=== PATIENT | male | born 1965 | race Caucasian/White ===

== ENCOUNTER 2018-12-18 09:40 | Day surgery (SDC) ==
[2018-12-18 10:10] VITALS: TEMP 97.9
[2018-12-18] MEDS ORDERED: LIDOCAINE 1% 20 ML MDV ID STA (10:10)
[2018-12-18] MEDS ORDERED: LIDOCAINE 1% 20 ML MDV ID ONE (10:34)
[2018-12-18] MEDS ORDERED: DIPRIVAN 20 ML VIAL IVP ONE (10:45)
[2018-12-18 14:03] VITALS: BP 114/72
--- NOTE | 2018-12-19 11:50 | OP ---
PROCEDURE: COLONOSCOPY TO THE CECUM. ENDOSCOPIST: Kim WORKMAN M.D. INDICATION: HISTORY OF POLYPS. REFERRING PHYSICIAN: SHARYN AMAYA INSTRUMENT: [id number]. MEDICATION: PER ANESTHESIA. PROCEDURE: The patient was positioned for colonoscopy. The digital rectal exam was negative. The colonoscope was inserted through the anus and advanced to the cecum. The cecum was identified using the ileocecal valve and the appendiceal orifice as landmarks. The scope was slowly withdrawn through an adequately prepped colon. The patient had a history of polyp that had been left in the colon some year and a half ago. I had no records to document that location. Multiple requests had been made to the referring physician's office for these records and again we have not obtained the records for his colonoscopy in [place]. We reached the cecum and slowly withdrew through all colonic segments. I saw no evidence for inflammatory change, polyp or mass. He does have diverticular disease throughout the left colon. The retroflex exam was normal. We then reinserted the colonoscopy and advanced again to the cecum. Narrow band imaging was used in the right colon and I did not identify a linear polyp as the patient had described. I saw no evidence for polyps on this exam. Attempts were made to contact my office to see if we could obtain the original colonoscopy report however it has not been sent to our office at time of his dictation. PLAN: 1. I will try to get the information from his last colonoscopy, review the pathology and the documentation to help decide on next colonoscopy. Once again I did not find a polyp on this exam although without knowing the specific location a polyp may have been over looked. CC: Magda CONTEH
== END 2018-12-18 12:00 | disposition home or self-care (01) ==
LOC: SURG 09:40
PROVIDERS: ATTEND Internal Medicine Gastroenterology
DX: Z86.010 Personal history of colon polyps (principal)